=== PATIENT | female | born 1985 | race Caucasian/White ===

== ENCOUNTER 2018-11-08 14:34 | Emergency (ER) | payer OTHER ==
[2018-11-08 14:41] VITALS: BP 126/68; PULSE 83; TEMP 98.3; BMI 23.8
[2018-11-08 15:27] LABS: PLATELET COUNT 333 K/MM3 (134-434); WHITE BLOOD COUNT 10.7 K/mm3 (4.0-10.0)
[2018-11-08 15:38] LABS: BASO % 0.6 % (0-2.0); EOS % 1.7 % (0-4.5); HEMOGLOBIN 14.7 GM/dL (10.7-15.3); LYMPH % 17.9 % (8-40); MCH 30.8 pg (25.7-33.7); MCHC 34.3 g/dl (32.0-36.0); MEAN CELL VOLUME 89.9 fl (80-96); MEAN PLT VOLUME 7.4 fl (7.5-11.1); MONO % 9.8 % (3.8-10.2); RBC 4.78 M/mm3 (3.60-5.2); RDW 12.9 % (11.6-15.6)
[2018-11-08 15:44] LABS: PROTHROMBIN TIME (PATIENT) 11.8 SEC (9.7-13.0)
[2018-11-08 15:47] LABS: ACTIVATED PTT 33.5 SECONDS (25.2-36.5)
[2018-11-08 15:58] LABS: ALBUMIN 4.1 g/dl (3.4-5.0); ALK PHOS 76 U/L (45-117); ANION GAP 3 MMOL/L (8-16); BILIRUBIN,TOTAL 0.5 mg/dL (0.2-1); BLOOD UREA NITROGEN 14 mg/dL (7-18); CHLORIDE 103 mmol/L (98-107); CO2 30 mmol/L (21-32); CREATININE 0.7 mg/dL (0.55-1.3); GLUCOSE,RANDOM 93 mg/dL (74-106); POTASSIUM 4.4 mmol/L (3.5-5.1); SGOT/AST 39 U/L (15-37); SGPT/ALT 60 U/L (13-61); SODIUM 136 mmol/L (136-145); TOT PROT 8.1 g/dl (6.4-8.2)
--- NOTE | 2018-11-08 15:58 | PDOC ---
History of Present Illness - General Chief Complaint: Vaginal Sxs Stated Complaint: SENT BY PCP Time Seen by Provider: 11/08/18 14:51 History Source: Patient Exam Limitations: No Limitations - History of Present Illness Initial Comments: 11/08/18 15:36 33 yo female no sig pmh, (2 C sections without complications, no tubal ligation) presents to ED from [facility] with a possible ectopic . States LMP Sep 22, confirmed at [facility] 11/04/2018 through beta quant 3400 with no visible IUP, repeat beta 11/06/2018 was 3900 without IUP. Pt denies vaginal bleed, passing clots, abdominal pain or fullness, F/C/N/V, back pain, weakness, hx of ectopic. Pt has no further complaints. Past History - Past Medical History Allergies/Adverse Reactions: Allergies Allergy/AdvReac Type Severity Reaction Status Date / Time No Known Allergies Allergy Verified 11/08/18 14:41 Home Medications: Ambulatory Orders NK [No Known Home Medication] 11/08/18 COPD: No - Reproductive History (#): 3 Para: 2 Ectopic : Yes (@ [facility]) Therapeutic (s) & number: No - Suicide/Smoking/Psychosocial Hx Smoking History: Never smoked Review of Systems - Review of Systems Constitutional: No: Chills, Fever Respiratory: No: Shortness of Breath Cardiac (ROS): No: Chest Pain ABD/GI: No: Constipated, Diarrhea, Nausea, Vomiting : Yes: Other (no vaginal discharge). No: Burning, Dysuria Musculoskeletal: No: Back Pain Neurological: No: Numbness, Weakness, Unsteady Gait, Ataxia, Dizziness *Physical Exam - Vital Signs Last Vital Signs Temp Pulse Resp BP Pulse Ox 98.3 F 83 18 126/68 100 11/08/18 14:39 11/08/18 14:39 11/08/18 14:39 11/08/18 14:39 11/08/18 14:39 - Physical Exam General Appearance: Yes: Nourished, Appropriately Dressed. No: Apparent Distress HEENT: positive: EOMI, TAJ Respiratory/Chest: positive: Lungs Clear. negative: Crackles, Rales, Rhonchi, Stridor, Wheezing Cardiovascular: positive: Regular Rhythm, Regular Rate, S1, S2. negative: Edema , JVD, Murmur Vascular Pulses: Dorsalis-Pedis (R): 4+, Doralis-Pedis (L): 4+ Gastrointestinal/Abdominal: positive: Flat, Soft. negative: Pulsatile Mass, Distended, Guarding, Rebound, Tenderness Musculoskeletal: positive: Normal Inspection. negative: CVA Tenderness Extremity: positive: Normal Capillary Refill, Normal Inspection Integumentary: positive: Normal Color, Dry, Warm Neurologic: positive: Fully Oriented, Alert, Normal Mood/Affect, Normal Response , Motor Strength 5/5 Moderate Sedation - Procedure Monitoring Vital Signs: Procedure Monitoring Vital Signs Temperature 98.3 F 11/08/18 14:39 Pulse Rate 83 11/08/18 14:39 Respiratory Rate 18 11/08/18 14:39 Blood Pressure 126/68 11/08/18 14:39 O2 Sat by Pulse Oximetry (%) 100 11/08/18 14:39 ED Treatment Course - LABORATORY CBC & Chemistry Diagram: 11/08/18 15:11 11/08/18 15:11 - RADIOLOGY Radiology Studies Ordered: Category Date Time Status TRANSVAGINAL US PREG [US] Stat Ultrasound 11/08/18 15:02 Ordered Medical Decision Making - Medical Decision Making 11/08/18 16:36 33 [facility]. No vaginal discharge/blood, no pain, weakness or dizziness. Vitals WNL H/H WNL, Beta 3700s Vaginal US shows gestational sac 5 weeks 1 day. No pole, yolk sac or heart beat Pt is comfortable, NAD. Likely has viable IU but can not r/o possible ectopic at this time. Plan: Repeat trans vag US and Beta 2 days with OB follow up Pt aware of plan and given strict return precautions *DC/Admit/Observation/Transfer Diagnosis at time of Disposition: Qualifiers: Weeks of gestation: less than 8 weeks Qualified Code(s): Z3A.01 - Less than 8 weeks gestation of - Discharge Dispostion Disposition: HOME Condition at time of disposition: Good Decision to Admit order: No - Referrals Referrals: Moshe Torres MD [Primary Care Provider] - Viridiana Bacon MD [Staff Physician] - - Patient Instructions Printed Discharge Instructions: DI for Ectopic , DI for -- Discomforts and Remedies Additional Instructions: Consulte a [facility] dentro de las prximas 48 horas. Mariah bobby simona con el doctor OB que se le remita. Repita la Beta HCG y repita la ecografa transvaginal en 2 mistry en [facility] para realizar un seguimiento de la progresin de schroeder embarazo. Regrese a la mil de emergencias para los sntomas nuevos o relacionados que incluyen, entre otros, sangrado vaginal profuso, dolor vaginal o abdominal, debilidad / fatiga o fiebre earl. Meli - Post Discharge Activity
--- NOTE | 2018-11-08 16:28 | PDOC ---
Attending Attestation - Resident Resident Name: AleAdria - ED Attending Attestation I have performed the following: I have examined & evaluated the patient, The case was reviewed & discussed with the resident, I agree w/resident's findings & plan, Exceptions are as noted - HPI HPI: 11/08/18 16:24 The patient is a 33 year old female , @ 6 weeks by LMP, with no significant past medical history, who presents to the emergency department to r/ o ectopic. Patient notes going to [facility] 11/04 at which time her beta HCG was 3400 without IUP visualized on US, and again 11/06 with a beta HCG of 3900 without visualization of IUP. Patient was advised to come to the ED for further evaluation and r/o ectopic. While in the ED, patient has no complaints. Denies abdominal pain. Denies vaginal bleeding/discharge. She denies recent fevers, chills, headache or dizziness. She denies recent nausea, vomit, diarrhea or constipation. She denies recent dysuria, frequency, urgency or hematuria. She denies recent chest pain or shortness of breath. Allergies: NKDA Past surgical history: x2 w/o complications. Social history: care at [facility] - Physicial Exam PE: 11/08/18 16:27 GENERAL: Awake, alert, and fully oriented, in no acute distress. HEAD: No signs of trauma EYES: PERRLA, EOMI, sclera anicteric, conjunctiva clear ENT: Auricles normal inspection, hearing grossly normal, nares patent, oropharynx clear without exudates. Moist mucosa NECK: Nontender, no stepoffs, Normal ROM, supple, no lymphadenopathy, JVD, or masses LUNGS: Breath sounds equal, clear to auscultation bilaterally. No wheezes, and no crackles HEART: Regular rate and rhythm, normal S1 and S2, no murmurs, rubs or gallops ABDOMEN: Soft, nontender, normoactive bowel sounds. No guarding, no rebound. No masses EXTREMITIES: Normal range of motion, no edema. No clubbing or cyanosis. No cords, erythema, or tenderness NEUROLOGICAL: Cranial nerves II through XII intact. 5/5 strength and sensation in all extremities, Normal speech, normal gait, normal cerebellar function SKIN: Warm, Dry, normal turgor, no rashes or lesions noted. - Medical Decision Making 11/08/18 16:28 33 F here for r/o ectopic. Asymptomatic now. - Repeat HCG - TVUS 11/08/18 16:34 TVUS shows intrauterine gestational sac but no pole or yolk sac HCG rising appropriately Pt instructed to f/u with outpt OB for repeat US and HCG Pt is well appearing, with normal vitals. Clinically stable for DC at this time. I discussed the physical exam findings, ancillary test results and final diagnoses with the patient. I answered all of the patient's questions. The patient was satisfied with the care received and felt comfortable with the discharge plan and treatment plan. The patient agrees to follow up with the primary care physician within 24-72 hours.
== END 2018-11-08 17:25 | disposition home or self-care (01) ==
LOC: JER 14:34
DX: Z34.81 Encounter for supervision of other normal pregnancy, first trimester (principal); Z3A.01 Less than 8 weeks gestation of pregnancy
CPT/HCPCS: 36415; 76817-TC; 80053; 84702; 85025; 85610; 85730; 99282-25

== ENCOUNTER 2021-06-03 10:10 | Emergency (ER) | payer OTHER ==
[2021-06-03 10:27] VITALS: BP 117/70; PULSE 65; TEMP 98.1; BMI 23.7
[2021-06-03] MEDS ORDERED: ACETAMINOPHEN/CAFFEINE/BUTALBITAL 1 TAB PO ONE (12:16)
[2021-06-03] MEDS ORDERED: ACETAMINOPHEN/CAFFEINE/BUTALBITAL 1 TAB ONE (12:23)
== END 2021-06-03 15:11 | disposition home or self-care (01) ==
LOC: JER 10:10
DX: G44.019 Episodic cluster headache, not intractable (principal)
CPT/HCPCS: 99283-25